=== PATIENT | male | born 1970 | race Caucasian/White ===

== ENCOUNTER 2017-01-09 02:55 | Emergency (ER) | payer BC ==
[2017-01-09] MEDS ORDERED: Metoclopramide 10 MG/2 ML SDV IVPUSH ONE (03:06)
[2017-01-09] MEDS ORDERED: HYDROmorphone 1 MG/ML Syringe IVPUSH ONE ×3 (03:06→06:17)
[2017-01-09] MEDS ORDERED: Sodium Chloride 0.9% 1,000 ML IV SCH (03:15)
--- NOTE | 2017-01-09 03:17 | EDM.PDOC ---
ED HPI GENERAL MEDICAL PROBLEM - General Chief Complaint: Lower Extremity Injury/Pain Stated Complaint: [facility] Time Seen by Provider: 01/09/17 03:00 Source of Information: Reports: Patient, EMS History Limitations: Reports: No Limitations - History of Present Illness INITIAL COMMENTS - FREE TEXT/NARRATIVE: 46-year-old male attends the ED per [facility]. Patient states he is currently staying at [facility] and was prepared to participate in the rodeo out there tomorrow. He states he essentially fell off of a deck approximate 5 feet off the ground landing hard on his right lower extremity. [place] the bone snap in his lower leg and he fell to the ground. Was unwitnessed and it took a significant period of time for him to get somebody's attention to aid him. [facility] was called and identified likely fracture of his lower right leg. He has not had an IV started and has received no medications en route. Tetanus toxoid is up-to-date about 2 years ago. Onset: Today Onset Date: 01/09/17 Onset Time: 02:00 Duration: Minutes:, Constant Location: Reports: Lower Extremity, Right (Right lower extremity above his ankle .) Quality: Reports: Ache, Throbbing Severity: Severe Improves with: Reports: None Worsens with: Reports: Movement Context: Reports: Trauma (Fell off of a deck proximal be 5 feet from the ground landing hard on his right foot.) Associated Symptoms: Reports: Nausea/Vomiting (Mild nausea with no vomiting). 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 [No Known Home Meds] 01/09/17 [History] Social & Family History - Living Situation & Occupation Occupation: Employed Review of Systems - Review of Systems Review Of Systems: See Below Constitutional: Reports: No Symptoms, Other (Very cold at this time as he was exposed to the elements for an hour.) Eyes: Reports: No Symptoms Ears: Reports: No Symptoms Nose: Reports: No Symptoms Mouth/Throat: Reports: No Symptoms Respiratory: Reports: No Symptoms Cardiovascular: Reports: No Symptoms GI/Abdominal: Reports: No Symptoms Genitourinary: Reports: No Symptoms Musculoskeletal: Reports: No Symptoms Skin: Reports: No Symptoms Neurological: Reports: No Symptoms Psychiatric: Reports: No Symptoms ED EXAM, GENERAL - Physical Exam Exam: See Below Exam Limited By: No Limitations General Appearance: Alert, Mild Distress Eye Exam: Bilateral Eye: Normal Inspection Throat/Mouth: Normal Inspection, Normal Lips, Normal Teeth, Normal Oropharynx Head: Atraumatic, Normocephalic Neck: Normal Inspection, Supple, Non-Tender, Full Range of Motion Respiratory/Chest: No Respiratory Distress, Lungs Clear, Normal Breath Sounds, No Accessory Muscle Use, Chest Non-Tender Cardiovascular: Normal Peripheral Pulses, Regular Rate, Rhythm, No Edema, No Gallop, No Murmur Peripheral Pulses: 2+: Dorsalis Pedis (L), Dorsalis Pedis (R), 3+: Posterior Tibial (L), Posterior Tibial (R) GI/Abdominal: Normal Bowel Sounds, Soft, Non-Tender, No Organomegaly (Male) Exam: Other (Has lost control of his bladder with his pants soaked with urine.) Back Exam: Normal Inspection, Full Range of Motion. No: CVA Tenderness (L), CVA Tenderness (R) Extremities: Normal Inspection, Normal Range of Motion, Non-Tender, No Pedal Edema, Normal Capillary Refill Neurological: Alert, Oriented, CN II-XII Intact, Normal Cognition, Normal Gait, Normal Reflexes, No Motor/Sensory Deficits Psychiatric: Normal Affect, Normal Mood Skin Exam: Warm, Dry, Intact, Normal Color, No Rash Course - Vital Signs Last Recorded V/S: Last Vital Signs Temp 36.4 C 01/09/17 03:04 Pulse 88 01/09/17 03:04 Resp 16 01/09/17 03:04 BP 105/65 01/09/17 03:04 Pulse Ox 92 L 01/09/17 03:04 - Orders/Labs/Meds Orders: Active Orders 24 hr Category Date Time Status Tibia Fibula Rt [CR] Stat Exams 01/09/17 03:07 Taken HYDROmorphone [Dilaudid] Med 01/09/17 06:17 Once 1 mg IVPUSH ONETIME ONE Sodium Chloride 0.9% [Normal Saline] 1,000 ml Med 01/09/17 03:15 Active IV ASDIRECTED Medication Orders Sodium Chloride (Normal Saline) 1,000 mls @ 150 mls/hr IV ASDIRECTED CHELSIE Last Admin: 01/09/17 03:14 Dose: 150 mls/hr Labs: Laboratory Tests 01/09/17 01/09/17 Range/Units 03:43 03:43 WBC 14.19 H (4.23-9.07) K/mm3 RBC 4.96 (4.63-6.08) M/mm3 Hgb 14.9 (13.7-17.5) gm/L Hct 43.9 (40.1-51.0) % MCV 88.5 (79.0-92.2) fl MCH 30.0 (25.7-32.2) pg MCHC 33.9 (32.2-35.5) g/dl RDW Std Deviation 42.1 (35.1-43.9) fL Plt Count 222 (163-337) K/mm3 MPV 10.9 (9.4-12.3) fl Neutrophils % (Manual) 87 H (40-60) % Band Neutrophils % 0 (0-10) % Lymphocytes % (Manual) 10 L (20-40) % Atypical Lymphs % 0 % Monocytes % (Manual) 2 (2-10) % Eosinophils % (Manual) 0 L (0.8-7.0) % Basophils % (Manual) 0 L (0.2-1.2) Myelocytes % 1 Platelet Estimate Adequate Plt Morphology Comment Normal RBC Morph Comment Normal Sodium 140 (136-145) mEq/L Potassium 4.4 (3.5-5.1) mEq/L Chloride 103 (98-107) mEq/L Carbon Dioxide 25 (21-32) mEq/L Anion Gap 16.4 H (5-15) BUN 8 (7-18) mg/dL Creatinine 1.2 (0.7-1.3) mg/dL Est Cr Clr Drug Dosing 99.77 mL/min Estimated GFR (MDRD) > 60 (>60) mL/min BUN/Creatinine Ratio 6.7 L (14-18) Glucose 132 H (74-106) mg/dL Calcium 8.2 L (8.5-10.1) mg/dL Total Bilirubin 0.4 (0.2-1.0) mg/dL AST 25 (15-37) U/L ALT 33 (16-63) U/L Alkaline Phosphatase 88 (46-116) U/L Total Protein 7.3 (6.4-8.2) g/dl Albumin 3.9 (3.4-5.0) g/dl Globulin 3.4 gm/dL Albumin/Globulin Ratio 1.2 (1-2) Ethyl Alcohol 0.18 (0.00) gm% Meds: Medications Generic Name Dose Route Start Last Admin Trade Name Freq PRN Reason Stop Dose Admin Sodium Chloride 1,000 mls @ 150 mls/hr 01/09/17 03:15 01/09/17 03:14 Normal Saline IV 150 mls/hr ASDIRECTED CHELSIE Administration Discontinued Medications Generic Name Dose Route Start Last Admin Trade Name Freq PRN Reason Stop Dose Admin Diphenhydramine HCl 25 mg 01/09/17 03:49 01/09/17 03:58 Benadryl IVPUSH 01/09/17 03:50 25 mg ONETIME ONE Administration Diphenhydramine HCl 25 mg 01/09/17 06:01 01/09/17 06:05 Benadryl IVPUSH 01/09/17 06:02 25 mg ONETIME ONE Administration Hydromorphone HCl 1 mg 01/09/17 03:06 01/09/17 03:15 Dilaudid IVPUSH 01/09/17 03:07 1 mg ONETIME ONE Administration Hydromorphone HCl 1 mg 01/09/17 03:49 01/09/17 03:59 Dilaudid IVPUSH 01/09/17 03:50 1 mg ONETIME ONE Administration Metoclopramide HCl 10 mg 01/09/17 03:06 01/09/17 03:14 Reglan IVPUSH 01/09/17 03:07 10 mg ONETIME ONE Administration - Radiology Interpretation Free Text/Narrative:: 46-year-old male presents to the ED per ambulance after falling off of a deck ( or camper stairs?) approximately 5 feet off the ground out at [facility]. He laid on the ground for about an hour before he was able to finally summon someone to help. The door and was was called. Clinically it appears she has a fracture of his distal tib-fib of the right side. Is under the influence of alcohol but appears only minorly intoxicated at this time. Routine labs including an ethanol level will be obtained. X-rays of the right tib-fib will be obtained. He reports tetanus toxoid is up-to-date about 2 years ago. Patient apparently resides in [place], [place]. - Re-Assessments/Exams Free Text/Narrative Re-Assessment/Exam: 01/09/17 03:52 x-rays of the right tib-fib reveal a fracture of the proximal right fibula with bony overlap. Also associated comminuted fracture of the distal tibia on the right leg. Patient is very concerned about his horses and vehicle and further left at [facility]. Ice spoke with the 's department through [place] and they're willing to help look after things in terms that the steel burner of [facility] owns a rash and will board his and look after his horses until he's available to come pick them up and easily lock up his vehicle in trailer and secure them. Therefore it some matter of getting the patient to orthopedic surgery for definitive management and repair. Try and speak with this patient's to help make appropriate decisions as he is making inappropriate decisions at this time believing that he can jump in his truck and drive himself back to [place] etc. 01/09/17 04:21 I have spoken with the through the [facility] office number is [phone]. They have arranged for the steel burner of [facility] [employer]( [place]) to board his horses and lock up his truck and trailer until he can return for them. Therefore his property and horses will be looked after appropriately until he or his can return for them. His apparently is in [place] and does not answer her cell phone were not able to reach her at this time. Therefore decision made that he needs definitive surgical repair of his leg sooner rather than later and I will therefore make arrangements for him to be transferred to [facility] in [place] for definitive orthopedic management. 01/09/17 04:45 Labs reveal no significant abnormalities in his chemistry. His anion gap is 16.4 probably due to alcohol on board partly being due to mildly volume depletion. Glucose 132 blood alcohol was 0.18 g percent. I therefore spoke with Dr. [place] cone picker orthopedic surgeon at [facility] and he is accepted care. Patient is to be transferred to the emergency room per ground ambulance. Plan will be to have definitive surgical repair carried out today. I will therefore leave him in the current splint that he arrived in for transported to [place]. the abrasion medial leg was cleansed and topical bacitracin ointment applied. 01/09/17 04:51 I am told by staffing that an periodicals clerk crew will not be available until 0600 hrs. to provide transported to [place]. Not much else we can do but wait for them to arrive to provide transport. 01/09/17 06:02 paramedics have arrived. They will be providing transport at this time. Patient given Benadryl 25 mg IV to help maintain sedation en route to [place]. Is been sleeping for the last hour and a half. 01/09/17 06:18 Given third dose of Dilaudid 1 mg IV as the movement is causing significant pain and discomfort. Departure - Departure Time of Disposition: 06:02 Disposition: DC/Tfer to Acute Hospital 02 Condition: Fair Clinical Impression: Fracture of tibia AND fibula - Discharge Information Referrals: PCP,Not In Area [Primary Care Provider] - Additional Instructions: Patient transferred to [facility] in [place] for definitive orthopedic surgical management as we do not have orthopedic coverage this weekend. Transported by ground ambulance. - My Orders Last 24 Hours: My Active Orders 01/09/17 03:07 Tibia Fibula Rt [CR] Stat 01/09/17 03:15 Sodium Chloride 0.9% [Normal Saline] 1,000 ml IV ASDIRECTED 01/09/17 06:17 HYDROmorphone [Dilaudid] 1 mg IVPUSH ONETIME ONE - Assessment/Plan Last 24 Hours: My Active Orders 01/09/17 03:07 Tibia Fibula Rt [CR] Stat 01/09/17 03:15 Sodium Chloride 0.9% [Normal Saline] 1,000 ml IV ASDIRECTED 01/09/17 06:17 HYDROmorphone [Dilaudid] 1 mg IVPUSH ONETIME ONE
[2017-01-09] MEDS ORDERED: diphenhydrAMINE 50 MG/ML SDV IVPUSH ONE ×2 (03:49→06:01)
[2017-01-09] MEDS ORDERED: HYDROmorphone 1 MG/ML Syringe ONE (06:21)
[2017-01-09 07:14] VITALS: BP 112/73
--- NOTE | 2017-01-09 17:55 | CR ---
Right tibia and fibula: AP and lateral views of the right tibia and fibula were obtained. Proximal fibular shaft fracture is seen showing displacement of over one shaft width as well as foreshortening. Displaced distal tibial fracture is seen through the diaphysis. Displacement by about three-quarter shaft width is seen in both medial to lateral and anterior to posterior direction. Slight comminution of the tibial fracture is seen. Soft tissue swelling is present. Impression: 1. Displaced proximal fibular shaft fracture and displaced distal tibial diaphyseal fracture. 2. Soft tissue swelling. Diagnostic code #5
== END 2017-01-09 06:21 ==
LOC: JD.ED 02:55
DX: S82.401A Unspecified fracture of shaft of right fibula, initial encounter for closed fracture (principal); S82.301A Unspecified fracture of lower end of right tibia, initial encounter for closed fracture; W17.89XA Other fall from one level to another, initial encounter
CPT/HCPCS: 36415; 73590; 80053; 85025; 96361; 96374; 96375; 96376; 99285; G0480; J1170; J1200; J2765; J7040